=== PATIENT | male | born 1980 | race Caucasian/White ===

== ENCOUNTER 2021-04-09 17:45 | Emergency (ER) | payer OTHER ==
[~2021-04-09] VITALS: Ht 193 cm; Wt 124.7 kg
--- OUTSIDE RECORDS SUMMARY | 2021-04-09 23:04 | XMS ---
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 - 2 Visits in 30 Days CARE PROVIDERS There are no care providers on record at this time. Damaso has no Care Guidelines for this patient. Carissa VISIT COUNT (12 MO.) [address] Anthony Franco TOTAL 2 NOTE: Visits indicate total known visits. ED/C VISIT TRACKING (12 MO.) [facility] COMPLAINT: - WEAKNESS 03/29/2021 19:06 [facility] OR TYPE: Emergency COMPLAINT: - L LEG PAIN DIAGNOSES: - L LEG PAIN INPATIENT VISIT TRACKING (12 MO.) 03/29/2021 19:06 [facility] OR TYPE: Medical Surgical DIAGNOSES: - Cellulitis of left lower limb - Sepsis, unspecified organism [email or web address]
== END 2021-04-09 23:03 | disposition home or self-care (01) ==
LOC: ED 17:45
DX: L03.116 Cellulitis of left lower limb (principal)
CPT/HCPCS: 80053; 83605; 85025; 96374; 99283-25; J1885; J7030